=== PATIENT | female | born 1970 | race Caucasian/White ===

== ENCOUNTER 2021-11-06 08:24 | Outpatient (RCR) | payer BC, SELFPAY ==
[2021-11-06 10:36] VITALS: BP 133/59; PULSE 80; RESP 18; TEMP 36.7; O2SAT 96
[2021-11-06] MEDS: FAMOTIDINE 20 MG TABLET PO (10:40)
[2021-11-06] MEDS: diphenhydrAMINE HCl CAP 25 MG CAPSULE PO (10:40)
--- NOTE | 2021-11-06 10:43 | PC.NURSE ---
Tylenol was not given as patient stated she took 1,000mg of Tylenol at 0900 at home before treatment.
[2021-11-06 11:55] VITALS: BP 138/79
--- NOTE | 2021-11-07 08:32 | PC.NURSE ---
Patient states she is feeling much better. The infusion was amazing.
== END 2021-11-06 17:00 ==
LOC: AMCINF 08:24
PROVIDERS: PCP Family Medicine Sports Medicine; Visit Provider Internal Medicine Hematology & Oncology
DX: U07.1 COVID-19 (principal); I10 Essential (primary) hypertension; I25.10 Atherosclerotic heart disease of native coronary artery without angina pectoris; E11.9 Type 2 diabetes mellitus without complications
CPT/HCPCS: A9270; M0243; Q0243

== ENCOUNTER 2021-11-10 18:37 | Emergency (ER) | payer BC, SELFPAY ==
--- NOTE | ~2021-11-10 | XR_ITS ---
EXAMINATION: XR chest 2V EXAM DATE: 11/10/2021 19:00 INDICATION: Cough and shortness of breath. TECHNIQUE: Frontal and lateral projections of the chest obtained and reviewed. There is no prior cornell dy for comparison. FINDINGS: Moderate bilateral ill-defined airspace disease, most likely acute stage COVID pneumonia g iven appearance and community prevalence. Other etiologies not excludable. No pneumothorax or pleural effusion. Cardiomediastinal silhouette is normal. IMPRESSION: Moderate bilateral pneumonia, consider COVID. Reviewed, dictated and finalized at location A. [employer] BI DEVELOPER
--- NOTE | 2021-11-10 18:41 | ED.URI ---
HPI - URI/Sore Throat General Chief Complaint: Upper Respiratory Infection Stated Complaint: not feeling well Time Seen by Provider: 11/10/21 18:39 Source: patient, RN notes reviewed and old records reviewed Mode of arrival: ambulatory Limitations: no limitations History of Present Illness HPI Narrative: 50-year-old female presents to the [facility] with complaints of still feeling awful. Patient states that she was diagnosed with Covid on November 02, 8 days ago. Had an effusion treatment on November 06. Per medical record Casirivimab Imdevimab was given. Patient has a history of asthma, diabetes, hypertension and high cholesterol. Has been using her inhaler. States that she has not been using her insulin because she has not been eating. Patient reports her blood sugars have been 2 50-300. Patient complains of left ear pain, headache, shortness of breath with exertion and a productive cough Related Data Home Medications Medication Instructions Recorded Confirmed losartan 25 mg PO DAILY 11/27/19 11/10/21 metformin 500 mg PO QID 11/27/19 11/10/21 rosuvastatin 20 mg DAILY 11/27/19 11/10/21 albuterol sulfate 1 mcg INHALATION DIRECTED 11/10/21 11/10/21 aspirin 81 mg PO DAILY 11/10/21 11/10/21 citalopram [Celexa] 40 mg PO DAILY 11/10/21 11/10/21 dapagliflozin [Farxiga] 10 mg DAILY 11/10/21 11/10/21 [id number]-[id number] 1 inh INHALATION BID 11/10/21 11/10/21 [Trelegy Ellipta] insulin regular hum U-500 conc 500 unit SUBCUT DIRECTED 11/10/21 11/10/21 [Humulin R U-500 (Conc) Kwikpen] levothyroxine [Euthyrox] 200 mcg BID 11/10/21 11/10/21 Allergies Allergy/AdvReac Type Severity Reaction Status Date / Time atorvastatin Allergy Cramping Verified 11/10/21 18:54 of the Muscles Iodine and Iodide Containing Allergy Hives Verified 11/10/21 18:54 Produc Review of Systems Review of Systems: All systems reviewed & are unremarkable except as noted in HPI and below Cardiovascular: Cardiovascular: Reports no additional cardiovascular complaints and Denies chest pain Respiratory: Respiratory: Reports no additional respiratory complaints, Denies chest congestion and Reports dyspnea (With exertion) Gastrointestinal: Gastrointestinal: Reports no additional gastrointestinal complaints, Denies abdominal pain, Denies nausea and Denies vomiting Musculoskeletal: Musculoskeletal: Reports no additional musculoskeletal complaints Integumentary/Breasts: Skin/Breast: Reports system reviewed and no additional complaints, except as docu Neurologic: Reports system reviewed and no additional complaints, except as documented Psychiatric: Psychiatric: Reports no additional psychiatric complaints Allergic/Immunologic: Allergic/Immunologic: Reports no additional allergic/immunologic complaints PMFSH Past Medical History Medical History (Updated 11/10/21 @ 19:40 by Ela Montes) Accelerated essential hypertension Diabetes High cholesterol Thyroid disorder Social History Social History Smoking packs per day: 1 Smoking cigarettes per day: 20.0 Years smoked: 20 Smoking pack-years: 20.00 Smoking status: Former smoker Tobacco type: cigarettes Gender identity (if verbalized by the patient): Female Spiritual care concerns: No Comments At the time of my signature, I reviewed and agree with the nursing past medical, surgical, social, and family history. There is no relevant family history pertinent to the patient complaint. Exam Const: General: no acute distress, alert and ill appearing chronically Nutritional Appearance: well nourished and obese Orientation/consciousness: patient oriented x3 Limitations: no limitations HENMT: Head: normal to inspection Ears: external ears normal Eyes: Pupils: Equal, round and reactive pupils present Neck: Neck: normal visual inspection, no lymphadenopathy and no meningeal signs Chest: Chest palpation &
[2021-11-10 18:52] VITALS: BP 139/64; PULSE 86; RESP 20; TEMP 36.9; O2SAT 95
[2021-11-10 19:09] LABS: Glucose Point of Care 230 mg/dl (65-105)
--- NOTE | 2021-11-10 19:09 | PC.NURSE ---
1845- Pt states, she has not been taking her insulin d/t her being sick and not eating.
--- NOTE | 2021-11-10 20:04 | PC.NURSE ---
1954- Dexamethasone would not scan as it had to be overriden to be removed from pxyis. Dexamethasone 10mg/mL 0.4mL given double checked by Av Montes prior to administration.
== END 2021-11-10 20:09 | disposition home or self-care (01) ==
PROVIDERS: Emergency Provider Nurse Practitioner
DX: U07.1 COVID-19 (principal); J12.82 Pneumonia due to coronavirus disease 2019; I10 Essential (primary) hypertension; E11.9 Type 2 diabetes mellitus without complications; E78.00 Pure hypercholesterolemia, unspecified; E07.9 Disorder of thyroid, unspecified; Z87.891 Personal history of nicotine dependence
CPT/HCPCS: 71046; 82948; 96372; 99213; G0463; J1100

== ENCOUNTER 2023-01-25 01:27 | Observation (INO) | payer BC, SELFPAY ==
[2023-01-25] VITALS (8 sets, daily range): BP systolic 112–176; BP diastolic 52–94; PULSE 78–99; RESP 14–20; TEMP 36.4–36.6; O2SAT 94–99; BMI 59.6
--- NOTE | ~2023-01-25 | CT_ITS ---
Noncontrast CT scan of the lumbar spine CLINICAL HISTORY: Status post fall TECHNIQUE: Axial noncontrast imaging of the lumbar spine was performed. Sagittal and coronal reformat nilda images were constructed. Dose reduction technique was used on this scan by utilizing automated ex posure control and iterative reconstruction technique. The dose-length product (DLP) was 2298.73 mGy- cm. Findings: There is no fracture or subluxation of the lumbar spine. Vertebral bodies maintain normal h eight and alignment. Intervertebral disc spaces are well preserved. At L1-L2, there is no disc bulge or herniation. No spinal canal stenosis or definite neural foraminal narrowing. At L2-L3, there is facet arthropathy, right worse than left, with probable mild canal stenosis and ri ght lateral recess stenosis. Probable mild right neural foraminal narrowing. Left neural foramen pres erved. At L3-L4, there is facet arthropathy. Possible minimal central canal stenosis. Probable moderate bila teral neural foraminal narrowing. At L4-L5, probable disc bulge and facet arthropathy contribute to probable severe thecal sac compress ion. There is moderate to advanced bilateral neural foraminal narrowing. At L5-S1, there is mild facet joint degenerative change. No definite canal stenosis. There is probabl e advanced bilateral neural foraminal narrowing, left worse than right. Paravertebral soft tissues are unremarkable. IMPRESSION: No fracture or subluxation. Moderate degenerative spondylosis, probable multifactorial severe thecal sac compression L4-L5. Proba ble multilevel neural foraminal narrowing. Please see details above. Reviewed, dictated and finalized at [facility]. ET MARKER IMPRESSION: No fracture or subluxation. Moderate degenerative spondylosis, probable multifactorial severe thecal sac co mpression L4-L5. Probable multilevel neural foraminal narrowing. Please see det ails above.
--- NOTE | ~2023-01-25 | CT_ITS ---
Noncontrast CT scan of the pelvis CLINICAL HISTORY: Status post fall TECHNIQUE: Axial noncontrast imaging of the pelvis was performed. Sagittal and coronal reformatted im ages were constructed. Dose reduction technique was used on this scan by utilizing automated exposure control and iterative reconstruction technique. The dose-length product (DLP) was 1094.98 mGy-cm. COMPARISON: 11/16/2016 FINDINGS: No fracture or dislocation is seen. Osseous alignment is anatomic. Bilateral hip and SI ladonna nt spaces are unremarkable. No hip joint effusion seen. No soft tissue mass or fluid collection identified. Musculature is symmetric about the pelvis. Visualized bowel loops are unremarkable. No ascites. No adnexal mass. Urinary bladder unremarkable. IMPRESSION: Unremarkable exam. Reviewed, dictated and finalized at location . R LINEWORKER IMPRESSION: Unremarkable exam.
--- NOTE | ~2023-01-25 | XR_ITS ---
Right Knee Technique: AP, lateral, and oblique views were obtained. Clinical History: Pain Findings: No fracture or dislocation is seen. Osseous alignment is anatomic. Moderate to advanced tri compartmental degenerative spurring is present. Probable medial compartment narrowing. Soft tissues a re unremarkable. No joint effusion is seen. Impression: No fracture or dislocation seen. Moderate to advanced tricompartmental osteoarthritis, worst in the medial compartment. Reviewed, dictated and finalized at location [facility]. DIGGER Impression: No fracture or dislocation seen. Moderate to advanced tricompartmental osteoarthritis, worst in the medial arian rtment.
--- NOTE | ~2023-01-25 | MR_ITS ---
MRI of the lumbar spine Clinical History: Back pain Technique: Axial T2-weighted images, and sagittal T1-weighted, T2-weighted, and T2 fat-sat images wer e acquired. Findings: There is no fracture or subluxation of the lumbar spine. Vertebral bodies maintain normal h eight and alignment. No focal or suspicious bone marrow signal abnormality identified. At L1-L2 and L2-L3, there is no disc bulge or herniation. There are facet joint degenerative changes at these levels. No spinal canal stenosis or neural foraminal narrowing. At L3-L4, there is mild disc bulge with facet arthropathy, which contribute to moderate thecal sac co mpression. Bilateral neural foramina are preserved. At L4-L5, disc bulge and facet arthropathy result in severe thecal sac compression. There is minimal bilateral neural foraminal narrowing. At L5-S1, disc bulge is present with facet arthropathy. There is no wilder spinal canal stenosis. Ther e is mild to moderate left neural foraminal narrowing and minimal right neural foraminal narrowing. Paravertebral soft tissues are unremarkable. Impression: Moderate degenerative spondylosis, worst at L4-L5 and L3-L4. Please see details above. Reviewed, dictated and finalized at location . CE SERVICES MANAGER Impression: Moderate degenerative spondylosis, worst at L4-L5 and L3-L4. Please see details above.
--- NOTE | ~2023-01-25 | US_ITS ---
US abdomen limited DATE: 01/26/2023 09:26 INDICATION: Transaminitis TECHNIQUE: Real-time imaging and Doppler analysis of liver, pancreas, gallbladder COMPARISON: 11/16/2016 CT abdomen pelvis FINDINGS: Cholelithiasis. No gallbladder wall thickening or pericholecystic fluid or fat stranding. N egative sonographic Fernandez's sign. Hepatic steatosis. Normal hepatopedal portal venous flow direction. The common bile duct measures 2.7 mm, normal. The pancreas is not optimally demonstrated. Consider CT abdomen examination for more definitive evalu ation. IMPRESSION: Cholelithiasis Hepatic steatosis Suboptimal evaluation of the pancreas; catheter CT abdomen examination Reviewed, dictated and finalized at [facility]. Reviewed, dictated and finalized at location [facility]. T METAL SUPERVISOR
--- NOTE | ~2023-01-25 | MR_ITS ---
MRI of the right hip Clinical history: Pain Technique: Coronal T1-weighted, T2-weighted, and proton-density fat-sat images, and axial T1-weighted and proton-density fat-sat images were acquired through the pelvis. Coronal T2-weighted images and c oronal, axial, and sagittal proton-density fat-sat images were acquired through the right hip. Findings: There is no fracture, avascular necrosis, transient suppresses of either hip. No focal bone marrow signal seen in the proximal femora or visualized pelvic bones. Possible extensive red marrow conversion, which could be due to underlying anemia. Bilateral SI joints are intact. There is mild degenerative change at the superolateral aspect of the right hip joint. Minimal degener ative change of the superolateral left hip joint. No hip joint effusions seen. No right acetabular la bral tear identified. Visualized musculature about the pelvis appears unremarkable. No muscle atrophy or edema identified. Visualized tendons appear intact. No soft tissue mass or abnormal fluid collection identified. IMPRESSION: Mild degenerative change of the hip joints, as noted above. No other significant findings. Reviewed, dictated and finalized at location . ENTARY READING SPECIALIST
--- NOTE | 2023-01-25 02:15 | ED.FALL ---
HPI - Fall General Chief Complaint: Fall Stated Complaint: fall Time Seen by Provider: 01/25/23 02:04 Source: RN notes reviewed History of Present Illness HPI Narrative: Patient presents emergency department from home via EMS for a fall. Patient states that she was sitting at her kitchen table taking her evening medications when she went to stand up states that her legs slipped out from under her and she fell backwards landing on her buttocks. She states that her right leg had been pinned backwards states that since that time she had severe pain in her right lower back and right hip states she has been unable to place weight on the right hip and called EMS for transport she denies any numbness of the right leg she denies any bowel or bladder incontinence. States that she believes she did hit her head but had no loss of consciousness and denies any headache at this time she denies any neck pain chest pain shortness of breath Related Data Home Medications Medication Instructions Recorded Confirmed losartan 25 mg tablet 25 mg PO DAILY 11/27/19 11/10/21 metformin 500 mg tablet,extended 500 mg PO QID 11/27/19 11/10/21 release 24 hr rosuvastatin 20 mg tablet 20 mg DAILY 11/27/19 11/10/21 albuterol sulfate 90 mcg/actuation 1 mcg inhalation DIRECTED 11/10/21 11/10/21 aerosol inhaler aspirin 81 mg tablet 81 mg PO DAILY 11/10/21 11/10/21 citalopram 40 mg tablet (Celexa) 40 mg PO DAILY 11/10/21 11/10/21 dapagliflozin 10 mg tablet 10 mg DAILY 11/10/21 11/10/21 (Farxiga) fluticasone fur. 100 mcg-umeclid 1 inh inhalation BID 11/10/21 11/10/21 62.5 mcg-vilant 25 mcg inhalat.powder (Trelegy Ellipta) insulin regular hum U-500 conc 500 500 unit subcut DIRECTED 11/10/21 11/10/21 unit/mL(3 mL) subcut pen (Humulin R U-500 (Conc) Insulin Kwikpen) levothyroxine 200 mcg tablet 200 mcg BID 11/10/21 11/10/21 (Euthyrox) Allergies Allergy/AdvReac Type Severity Reaction Status Date / Time atorvastatin Allergy Cramping Verified 11/10/21 18:54 of the Muscles Iodine and Iodide Containing Allergy Hives Verified 11/10/21 18:54 Produc Review of Systems Review of Systems: Gen.: Denies fevers or chills Eyes: Denies eye pain or visual change ENT: Denies c facial pain Respiratory: Denies shortness of breath or cough CV: Denies chest pain or palpitations GI: Denies abdominal pain nausea, emesis or diarrhea denies incontinence Musculoskeletal: See HPI Neuro: Denies numbness, tingling, headache or loss of consciousness Skin: Denies rash Except as documented, all other systems reviewed and negative [facility] Past Medical History Medical History Accelerated essential hypertension Diabetes High cholesterol Thyroid disorder Social History Social History Smoking packs per day: 1 Smoking cigarettes per day: 20.0 Years smoked: 20 Smoking pack-years: 20.00 Smoking status: Former smoker Tobacco type: cigarettes Gender identity (if verbalized by the patient): Female Spiritual care concerns: No Exam Narrative: APPEARANCE: No acute distress, nontoxic, resting in bed EYES: EOMI, PERRL HEENT: Normocephalic, atraumatic, OMM no facial tenderness Neck: Supple no midline tenderness to palpation range of motion without pain RESPIRATORY: No respiratory distress Clear to auscultation bilaterally with no rhonchi wheezing or rales. CARDIOVASCULAR: Regular rate and rhythm without murmurs rubs or gallops. ABDOMINAL: Soft, nontender, nondistended, no rebound or guarding Back: No midline thoracic or lumbar tenderness palpation tender palpation of the right paravertebral muscles L3-4-5 MUSCULOSKELETAl:. No clubbing, cyanosis or edema. No tenderness of the bilateral upper extremities and the left lower extremity tender palpation over the right posterior and lateral hip with pain with any movement of the hip,
[2023-01-25] MEDS: MORPHINE SULFATE (*CRX) 4 MG/ML INJ IV PUSH (03:39)
[2023-01-25 04:07] LABS: Basophils Absolute Auto 0.1 K/mm3 (0.0-0.1); Basophils Percent Auto 0.6 % (0.2-1.2); Eosinophils Absolute Auto 0.2 K/mm3 (0-0.3); Hematocrit 41.6 % (37.0-47.0); Hemoglobin 13.9 g/dL (12.0-15.0); Immature Granulocyte Absolute 0.11 K/mm3 (0.00-0.031); Immature Granulocyte Percent A 0.7 % (0-0.5); Lymphocytes Absolute Auto 2.32 K/mm3 (0.9-3.2); Lymphocytes Percent Auto 14.8 % (18.3-44.2); Mean Corpuscular HGB Conc 33.4 g/dl (32-36); Mean Corpuscular Volume 89.7 fl (80-100); Mean Platelet Volume 10.8 fl (7.4-10.4); Monocytes Absolute Auto 1.1 K/mm3 (0.1-0.6); Monocytes Percent Auto 6.7 % (2.6-8.5); Neutrophils Percent Auto 76.2 % (45.5-73.1); Platelet Count Result 224 k/mm3 (150-375); Red Blood Count 4.64 M/mm3 (4.2-5.4); Red Cell Distribution Width 15.1 % (11.5-14.5); White Blood Count 15.7 K/mm3 (4.5-10.0)
[2023-01-25 04:20] LABS: Alanine Aminotransferase 46 U/L (6-35); Albumin Level 4.5 g/dL (3.5-5.1); Alkaline Phosphatase 174 U/L (38-126); Anion Gap 11 mmol/L (8-16); Aspartate Amino Transferase 44 U/L (14-36); Bilirubin,Total 0.6 mg/dL (0.2-1.3); Blood Urea Nitrogen 20 mg/dL (7-17); Calcium 8.7 mg/dL (8.4-10.2); Carbon Dioxide 24 mmol/L (22-30); Chloride 101 mmol/L (98-107); Estimated CRCL calculation 134 ml/min; Estimated Glomerular Filt Rate > 60; Glucose 287 mg/dL (65-110); Potassium 3.9 mmol/L (3.4-5.0); Sodium 136 mmol/L (137-145)
[2023-01-25 04:43] LABS: Influenza A QL RT-PCR Negative (Negative); Influenza B QL RT-PCR Negative (Negative); SARS-CoV-2 RNA PCR Negative
[2023-01-25] MEDS: KETOROLAC 30 MG/ML VIAL (*BKC) IV PUSH ×2 (06:22→14:54)
--- NOTE | 2023-01-25 08:31 | PM.IMHP ---
H&P: HPI History of Present Illness Date/Time: 01/25/23 08:31 Chief Complaint: Fall Narrative: Annamaria Shaffer is a 52 yo female with insulin dependent diabetes mellitus, hypothyroidism, hypertension and hyperlipidemia who presented to the ED following a fall from ground level. She reports standing up from the table yesterday and slipping on something on the floor. She states the floor was slick like flour was present. She reports landing on her left side and striking the left temporal head region. She denies LOC. She also states that her right leg was was contorted behind her like she was in a splits-like position. She required her son and ex-husbands assistance to get up off of the floor and then was unable to bear weight on her right leg. She had severe pain to her right hip/back region, which radiated down her right leg. She has some paresthesia to her right leg, but thinks this is secondary to the way she is positioned. 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 She denies fever, chills, rigors, SOB, RICKETTS, chest pain, palpitations, dizziness, abd pain, N/V/D or changes in eating habits prior to her fall. Currently, she is c/o severe pain to her right knee. In the ED, her vitals were stable except her BP was elevated 159/87 to 176/79. Lab work showed glucose 287 and WBC 15.7, but CBC and CMP were otherwise unremarkable. CT pelvis was negative for fractures. CT Lumbar spine snowed moderate spondylosis with severe thecal sac compression L4-5. Right knee x-ray showed moderate OA. She was treated with IV morphine and IV toradol. Orthopedics and Neurosurgery were consulted for further evaluation. She was admitted for pain control. Review of Systems Review of Systems: All systems reviewed & are unremarkable except as noted in HPI and below Constitutional: Constitutional: Reports no additional constitutional complaints Eyes: Eyes: Reports no additional eye complaints ENT: Reports system reviewed and no additional complaints, except as documented Cardiovascular: Cardiovascular: Reports no additional cardiovascular complaints Respiratory: Respiratory: Reports no additional respiratory complaints Gastrointestinal: Gastrointestinal: Reports no additional gastrointestinal complaints Genitourinary: Genitourinary: Reports vaginal discharge, Reports vaginal odor and Reports vaginal pruritus Musculoskeletal: Musculoskeletal: Reports as per HPI Integumentary/Breasts: Skin/Breast: Reports system reviewed and no additional complaints, except as docu Neurologic: Reports other ( asleep sensation RLE) [facility] Past Medical History Medical History (Updated 01/25/23 @ 17:35 by Nellie Grimm APRN) Accelerated essential hypertension Asthma Diabetes DVT of leg (deep venous thrombosis) Bilateral lower extremities in 30s secondary to contraception Fatty liver Gallstones H. pylori infection High cholesterol Hypothyroidism Lumbar spondylosis Morbid obesity with body mass index (BMI) greater than or equal to 50 Pulmonary hypertension Renal cyst Vaginal yeast infection Frequent Surgical History Surgical History (Updated 01/25/23 @ 17:23 by Nellie Grimm APRN) H/O thyroidectomy Hx of tonsillectomy Social History Social History (Updated 01/25/23 @ 17:24 by Nellie Grimm APRN) Smoking packs per day: 1 Smoking cigarettes per day: 20.0 Years smoked: 20 Smoking pack-years: 20.00 Smoking status: Former smoker Tobacco type: cigarettes Alcohol intake: former Drinks per week: 50 Substance use: never Substance use type: does not use Lack of Transportation: No Lack of Food: Never True Current Housing: I Have Housing Concerned About Future Housing: No Difficulty Paying Gas/Electric Bills: No Difficulty Paying for Meds: No Currently Unemployed: No Education: Associate Degree Diffi
[2023-01-25 09:09] LABS: Hemoglobin A1C 8.4 % (<5.7)
[2023-01-25 10:18] LABS: Folic Acid 6.9 ng/mL (2.76->20)
[2023-01-25 11:04] LABS: Vitamin D 25 Hydroxy 24.7 ng/mL
--- NOTE | 2023-01-25 12:08 | WPDNEUROSGPN ---
Subjective Date/time seen: 01/25/23 12:08 Interval history: Asked to review MRI lumbar spine by ED team Patient presented with a ground level fall yesterday with an injury to the right hip She has struggled to bear weight on the right leg since She underwent a CT of the lumbar spine in the ED that was suggestive of spinal stenosis at L4-5 The patient has subsequently undergone MR imaging of the lumbar spine that shows multilevel spondylotic changes. A combination of ligamentous and facet hypertrophy do contribute to severe central stenosis at the L4-5 level. These changes appear chronic and there are not acute changes on imaging. Agree with plans for imaging of the right hip with evaluation by orthopedic surgery. Will ask our SENIOR CIVIL ENGINEER to evaluate the patient this afternoon, but do not suspect that the spine is the primary coach driver of the patient's symtpoms. Would be reasonable to consider outpatient followup, however important to recognize that with a BMI approaching 60, the patient's weight will impact whether she would be a candidate for elective spinal surgery Objective Data Vital Signs Vital Signs: Vital Signs - 24 hr 01/25/23 01:28 01/25/23 06:36 01/25/23 10:00 Temperature 97.9 F Pulse Rate 89 86 94 Respiratory Rate 19 20 16 Blood Pressure 159/87 H 176/79 H 120/52 L Pulse Oximetry 99 96 94 Oxygen Delivery Room Air 01/25/23 09:15 01/25/23 08:00 Temperature Pulse Rate 99 99 Respiratory Rate 16 16 Blood Pressure 137/69 150/72 H Pulse Oximetry 95 96 Oxygen Delivery Meds/Results Medications: Active Medications Generic Name Dose Route Start Last Admin Trade Name Freq PRN Reason Stop Dose Admin Dextrose 12.5 gm 01/25/23 08:26 Dextrose 50% 25 Gm/50 Ml Syringe IV PUSH PRN PRN Hypoglycemia Protocol Glucagon 1 mg 01/25/23 08:26 Glucagon For Inj 1 Mg Vial IM PRN PRN Hypoglycemia Protocol Glucose 15 gm 01/25/23 08:26 Glucose Oral Gel 15 Gm Of Glucse In 37.5 Gm Tube PO PRN PRN Hypoglycemia Protocol Dextrose 1,000 mls @ 100 mls/hr 01/25/23 08:26 Dextrose 5% 1,000 Ml IVPB PRN PRN Hypoglycemia Protocol Insulin Aspart 4 - 8 units 01/25/23 12:00 Insulin Aspart (*Bkc) 100 Units/Ml SUB-Q TIDWM KERRY Protocol Morphine Sulfate 4 mg 01/25/23 07:17 Morphine Sulfate (*Crx) 4 Mg/Ml Inj IV PUSH Q4HR PRN Pain Rated 7-10 Radiology Results: ITS Impressions Pelvis CT 01/25/23 06:24 IMPRESSION: Unremarkable exam. Lumbar Spine CT 01/25/23 06:28 IMPRESSION: No fracture or subluxation. Moderate degenerative spondylosis, probable multifactorial severe thecal sac compression L4-L5. Probable multilevel neural foraminal narrowing. Please see details above. Knee X-Ray 01/25/23 06:55 Impression: No fracture or dislocation seen. Moderate to advanced tricompartmental osteoarthritis, worst in the medial compartment. Lumbar Spine MRI 01/25/23 09:47 Impression: Moderate degenerative spondylosis, worst at L4-L5 and L3-L4. Please see details above. Labs Labs: Laboratory Results - last 24 hr 01/25/23 01/25/23 01/25/23 03:41 03:41 03:42 WBC 15.7 H RBC 4.64 Hgb 13.9 Hct 41.6 MCV 89.7 MCH 30.0 MCHC 33.4 RDW 15.1 H Plt Count 224 MPV 10.8 H Immature Gran % (Auto) 0.7 H Neut % (Auto) 76.2 H Lymph % (Auto) 14.8 L [place] % (Auto) 6.7 Eos % (Auto) 1.0 Baso % (Auto) 0.6 Lymph # (Auto) 2.32 [place] # (Auto) 1.1 H Eos # (Auto) 0.2 Baso # (Auto) 0.1 Abs Immat Gran (auto) 0.11 H Absolute Neuts (auto) 12.0 H Absolute Nucleated RBC 0.0 Nucleated RBC % 0.0 Sodium Potassium Chloride Carbon Dioxide Anion Gap BUN Creatinine Estim Creat Clear Calc Estimated GFR Glucose Hemoglobin A1c 8.4 H Calcium Total Bilirubin AST ALT Alkaline Phosphatase Total
[2023-01-25 13:05] LABS: Glucose Point of Care 191 mg/dl (65-105)
--- NOTE | 2023-01-25 13:23 | PM.CNOR ---
Assessment and Plan Assessment and plan (1) Acute pain of right hip: Code(s): M25.551 - Pain in right hip Status: Acute Assessment and Plan: Patient is a 52-year-old female who presented through the emergency room last night after a fall at home. She fell onto her left side actually and the right leg was somehow twisted behind her. She was brought to the emergency room when she was unable to bear weight on the right leg. Her chief complaint was pain in the lateral posterior buttock that would radiate to the right lateral hip which she was in the ER. Subsequently she started noticing pain in the anterior aspect of her right knee this morning. She had MRI scan of her lumbar spine which showed no evidence of fracture but did show severe central canal stenosis at L4-[address] Oliveira the neurosurgeon has seen her already this morning. There did not appear to be any traumatic findings on the MRI scan. She had plain x-rays of her right knee in the emergency room which demonstrated rather severe degenerative changes in all 3 compartments on these nonweightbearing x-rays. The lateral views was large trochlear and inferior and superior pole patellar osteophytes. The AP view shows very large lateral tibial plateau osteophyte and some relative cupping of the lateral plateau and there is narrowing of medial compartment joint space with sclerotic changes. The lateral view did not show a significant joint effusion that I could see. No evidence of fracture identified. She had x-rays of right hip and CT scan which showed only minor degenerative changes but no fracture. An MRI scan right hip was obtained I have reviewed the radiologist's report as well as the images. She has some tendinopathy of the gluteus medius Tendons bilaterally. no evidence of tear no soft tissue hematoma noted although because of her extreme obesity the imaging window did not include the more superficial subcutaneous fat layer. No effusion in her hip joint no bony edema or fracture. Her laboratory studies showed increased white count 15.7. Glucose is elevated 287. Hemoglobin A1c elevated at 8.4. All of her liver enzymes are elevated AST 44 ALT 46 alkaline phosphatase 174 and these findings might be associated with steatohepatitis considering her extreme degree of obesity. Twenty-five hydroxy vitamin-D level was mildly diminished. On examination she states she prefers to lay with her leg externally rotated. When she holds it neutral rotation is more painful diffusely both in the anterior infrapatellar knee area and in the posterolateral buttock area. With effort, she was able to lift her heel with her leg extended straight, on her own about 2 in above the bed. She felt some posterolateral buttock pain with this. On palpation she denied any tenderness medial or lateral aspects of her right knee or palpation the patella patellar tendon tibial tubercle but with flexion of her knee to about 45? she reported significant pain. The pain was infrapatellar. With the leg externally rotated more flexion of the knee to 55? was only mildly uncomfortable with infrapatellar pain. She exhibited intact extensor mechanism strength. I could not palpate effusion although with her obesity I might miss a small effusion. There is no instability to varus valgus stress testing or pain with this. She had a 2+ dorsalis pedis pulse palpable. She reported normal sensation but she states that if she holds her leg is certain way the whole leg seems to tingle from the hip down. Then she rolls her leg out of the lobe it she gets relief from that. She had intact motor function at the right foot and ankle. No pedal or ankle edema. Impression: Patient has a complex constellation of symptoms. It is clear that she has significant osteoarthritis in the right knee and if her knee hyperflexed with her fall which it sounds like it did weigh her foot was underneath her, she may have exacerbated patellofemoral
--- NOTE | 2023-01-25 15:29 | PC.NURSE ---
Called pharmacist and verified methylprednisolone scheduling/dosing. Pharmacist explained to give 0630, 1200, and 1700 dose together. Then moving forward scheduled doses will be given at scheduled times.
--- NOTE | 2023-01-25 15:41 | ADMGEN ---
This patient, Annamaria Shaffer, was admitted to [facility] Room 315-02. Patient/family oriented to hospital policies and general routines including ID bracelet, bed and alarms, visiting hours, pain management, procedures, bathroom and other care routines, personal items, smoking policy, room service/diet, and visiting hours. Information on how to activate the Rapid Response Team has been discussed. Patient/Family are encouraged to report perceived risks to care and to ask questions if they do not understand what they are told or what they should do.
--- NOTE | 2023-01-25 16:11 | WPDNEUROSGPN ---
Progress Note: A&P Assessment and Plan (1) Lumbar spondylosis: Code(s): M47.816 - Spondylosis without myelopathy or radiculopathy, lumbar region Status: Acute Assessment and Plan: Continue to work with PT and OT Pain control per Hospitalist Reasonable to see as an outpatient for extended low back care if needed. Time Spent With Patient Time with patient: less than 15 minutes Subjective Date/time seen: 01/25/23 16:11 Interval history: Patient presented with a ground level fall yesterday with an injury to the right hip Continues to struggle to bear weight on the right leg since The patient has subsequently undergone MR imaging of the lumbar spine that shows multilevel spondylotic changes.? A combination of ligamentous and facet hypertrophy do contribute to severe central stenosis at the L4-5 level.? These changes appear chronic and there are not acute changes on imaging. Do not suspect that the spine is the primary motor bus driver of the patient's symptoms.? Would be reasonable to consider outpatient followup, however important to recognize that with a BMI approaching 60, the patient's weight will impact whether she would be a candidate for elective spinal surgery. Interpretations per Dr Darby. Pain remains present to right low back and right lateral lower extremity. Review of Systems Review of Systems: All systems reviewed & are unremarkable except as noted in HPI and below Exam Narrative: General: No acute distress.? Obese female laying on her side in the bed upon arrival.? Mental Status/Psych: Awake, alert and oriented to person and place with clear speech. Neutral mood and affect. Pleasant and cooperative. Chest: Respirations even and unlabored. Extremities:?4+/5 with right hip flexor, otherwise 5/5 throughout. Decrease ROM to RLE due to right lateral hip and right low back pain . Tenderness with palpation to right lower lumbar paravertebral muscles, SIJ and trochanteric bursa. Neurological: No focal deficits. Objective Data Vital Signs Vital Signs: Vital Signs - 24 hr 01/25/23 01:28 01/25/23 06:36 01/25/23 10:00 Temperature 36.6 C Pulse Rate 89 86 94 Respiratory Rate 19 20 16 Blood Pressure 159/87 H 176/79 H 120/52 L Pulse Oximetry 99 96 94 Oxygen Delivery Room Air 01/25/23 09:15 01/25/23 08:00 01/25/23 13:16 Temperature 36.6 C Pulse Rate 99 99 88 Respiratory Rate 16 16 14 Blood Pressure 137/69 150/72 H 127/67 Pulse Oximetry 95 96 95 Oxygen Delivery 01/25/23 14:00 Temperature 36.6 C Pulse Rate 87 Respiratory Rate 16 Blood Pressure 112/66 Pulse Oximetry 96 Oxygen Delivery Meds/Results Medications: Active Medications Generic Name Dose Route Start Last Admin Trade Name Freq PRN Reason Stop Dose Admin Acetaminophen 650 mg 01/25/23 12:31 Acetaminophen 325 Mg Tablet PO Q6H PRN Mild Pain (1-3) or Fever Hydrocodone Bitart/Acetaminophen 1 tab 01/25/23 12:32 Hydrocodone/Acetaminophen (*Crx) 5-325 Mg Tablet PO Q6H PRN Pain Rated 6 or Greater Dextrose 12.5 gm 01/25/23 08:26 Dextrose 50% 25 Gm/50 Ml Syringe IV PUSH PRN PRN Hypoglycemia Protocol Enoxaparin Sodium 30 mg 01/25/23 21:00 Enoxaparin 30 Mg/0.3 Ml Syringe SUB-Q Q12HR [facility] Glucagon 1 mg 01/25/23 08:26 Glucagon For Inj 1 Mg Vial IM PRN PRN Hypoglycemia Protocol Glucose 15 gm 01/25/23 08:26 Glucose Oral Gel 15 Gm Of Glucse In 37.5 Gm Tube PO PRN PRN Hypoglycemia Protocol Dextrose 1,000 mls @ 100 mls/hr 01/25/23 08:26 Dextrose 5% 1,000 Ml IVPB PRN PRN Hypoglycemia Protocol Insulin Aspart 4 - 8 units 01/25/23 12:00 01/25/23 12:59 Insulin Aspart (*Bkc) 100 Units/Ml SUB-Q Not Given TIDWM [facility] Protocol Methylprednisolone 4 mg 01/25/23 06:30 Methylprednisolone (Medrol) Dosepack 4 Mg Tablets PO 01/30/23 07:29 1200,1700 [facility] Taper Morphine Sulfate 4 mg 01/25/23 12:
[2023-01-25 16:28] LABS: Glucose Point of Care 192 mg/dl (65-105)
[2023-01-25] MEDS: methylPREDNISolone (MEDROL) DOSEPACK 4 MG TABLETS PO ×4 (16:47→20:43)
--- NOTE | 2023-01-25 17:22 | PHAR ---
HUMULIN R U-500 INSULIN PEN VERIFIED BY PHARMACY
[2023-01-25] MEDS: metFORMIN HCL XR 500 MG TAB.SR.24H 1000 MG PO (18:29)
[2023-01-25] MEDS: FLUCONAZOLE 150 MG TABLET PO (18:29)
[2023-01-25 18:36] LABS: CRP 2.2 mg/dL (<1.0)
[2023-01-25 19:35] LABS: Procalcitonin 0.1 ng/mL
[2023-01-25 19:47] LABS: Hepatitis B Surface Antigen Negative (Negative)
[2023-01-25 19:53] LABS: HAV RESULT Negative (Negative); Hepatitis B Core IgM Result Negative (Negative)
[2023-01-25 20:05] LABS: Hepatitis C Virus Antibody Negative (Negative)
[2023-01-25] MEDS: ENOXAPARIN 30 MG/0.3 ML SYRINGE SUB-Q (20:45)
[2023-01-25] MEDS: ROSUVASTATIN 10 MG TABLET 20 MG PO (20:46)
[2023-01-25 20:51] LABS: Glucose Point of Care 314 mg/dl (65-105)
[2023-01-25] MEDS: CITALOPRAM HYDROBROMIDE 20 MG TABLET PO (21:30)
[2023-01-25] MEDS: INSULIN ASPART (*BKC) 100 UNITS/ML SUB-Q (22:04)
[2023-01-25] MEDS: CYCLOBENZAPRINE HCL 5 MG TABLET PO (22:06)
[2023-01-26 06:00] VITALS: BP 117/48; PULSE 80; RESP 20; TEMP 36.5; O2SAT 96
[2023-01-26] MEDS: CYCLOBENZAPRINE HCL 5 MG TABLET PO ×3 (06:13→21:56)
[2023-01-26] MEDS: methylPREDNISolone (MEDROL) DOSEPACK 4 MG TABLETS PO ×4 (06:13→21:56)
[2023-01-26] MEDS: LEVOTHYROXINE SODIUM 100 MCG TABLET 400 MCG PO (06:13)
[2023-01-26 07:21] LABS: Basophils Absolute Auto 0.1 K/mm3 (0.0-0.1); Basophils Percent Auto 0.5 % (0.2-1.2); Eosinophils Percent Auto 0.1 % (0-4.4); Hemoglobin 13.2 g/dL (12.0-15.0); Immature Granulocyte Absolute 0.05 K/mm3 (0.00-0.031); Immature Granulocyte Percent A 0.5 % (0-0.5); Lymphocytes Absolute Auto 1.29 K/mm3 (0.9-3.2); Lymphocytes Percent Auto 13.1 % (18.3-44.2); Mean Corpuscular HGB Conc 33.8 g/dl (32-36); Mean Corpuscular Hemoglobin 30.4 pg (26-34); Mean Corpuscular Volume 89.9 fl (80-100); Mean Platelet Volume 10.5 fl (7.4-10.4); Monocytes Absolute Auto 0.4 K/mm3 (0.1-0.6); Neutrophils Percent Auto 81.8 % (45.5-73.1); Platelet Count Result 200 k/mm3 (150-375); Red Blood Count 4.34 M/mm3 (4.2-5.4); Red Cell Distribution Width 14.6 % (11.5-14.5); White Blood Count 9.8 K/mm3 (4.5-10.0)
[2023-01-26 07:41] LABS: Alanine Aminotransferase 43 U/L (6-35); Albumin Level 4.2 g/dL (3.5-5.1); Alkaline Phosphatase 158 U/L (38-126); Anion Gap 8 mmol/L (8-16); Aspartate Amino Transferase 28 U/L (14-36); Bilirubin,Total 0.7 mg/dL (0.2-1.3); Blood Urea Nitrogen 15 mg/dL (7-17); Calcium 8.7 mg/dL (8.4-10.2); Carbon Dioxide 25 mmol/L (22-30); Chloride 102 mmol/L (98-107); Estimated CRCL calculation 182 ml/min; Estimated Glomerular Filt Rate > 60; Glucose 267 mg/dL (65-110); Potassium 4.2 mmol/L (3.4-5.0); Sodium 135 mmol/L (137-145)
[2023-01-26 07:46] LABS: Glucose Point of Care 280 mg/dl (65-105)
[2023-01-26] MEDS: metFORMIN HCL XR 500 MG TAB.SR.24H 1000 MG PO ×2 (08:22→17:14)
[2023-01-26] MEDS: ENOXAPARIN 30 MG/0.3 ML SYRINGE SUB-Q ×2 (08:23→21:57)
[2023-01-26] MEDS: PANTOPRAZOLE 40 MG TABLET PO (08:23)
[2023-01-26] MEDS: buPROPion HCL XL (24 HR) 150 MG TABCR PO (08:23)
[2023-01-26] MEDS: LOSARTAN POTASSIUM 25 MG TABLET 50 MG PO (08:23)
[2023-01-26] MEDS: LORATADINE 10 MG TABLET PO (08:23)
[2023-01-26] MEDS: EMPAGLIFLOZIN 25 MG TABLET PO (08:23)
[2023-01-26] MEDS: KETOROLAC 30 MG/ML VIAL (*BKC) IM (08:32)
--- NOTE | 2023-01-26 08:46 | PM.PNORT ---
Progress Note: A&P Assessment and Plan (1) Acute pain of right hip: Code(s): M25.551 - Pain in right hip Status: Acute Assessment and Plan: Patient reports she is doing better today pain munoz and is comfortable sitting on the edge of the bed. is not sure if she can bear weight. We will ask Physical therapy to work with her and see if she can be mobilized. Subjective Subjective Date/Time Seen: 01/26/23 08:46 Objective Data Vital Signs Vital Signs: Vital Signs - 24 hr 01/25/23 10:00 01/25/23 09:15 01/25/23 13:16 Temperature 36.6 C Pulse Rate 94 99 88 Respiratory Rate 16 16 14 Blood Pressure 120/52 L 137/69 127/67 Pulse Oximetry 94 95 95 Oxygen Delivery 01/25/23 14:00 01/25/23 16:19 01/25/23 21:56 Temperature 36.6 C 36.4 C L Pulse Rate 87 78 Respiratory Rate 16 18 Blood Pressure 112/66 145/94 H Pulse Oximetry 96 95 Oxygen Delivery Room Air 01/26/23 06:00 Temperature 36.5 C Pulse Rate 80 Respiratory Rate 20 Blood Pressure 117/48 L Pulse Oximetry 96 Oxygen Delivery Intake/Output Intake/Output: Intake & Output 01/23/23 01/24/23 01/25/23 01/26/23 23:59 23:59 23:59 23:59 Intake Total 740 770 Output Total 2250 Balance 740 -1480 Meds/Results Medications: Active Medications Generic Name Dose Route Start Last Admin Trade Name Freq PRN Reason Stop Dose Admin Acetaminophen 650 mg 01/25/23 12:31 Acetaminophen 325 Mg Tablet PO Q6H PRN Mild Pain (1-3) or Fever Hydrocodone Bitart/Acetaminophen 1 tab 01/25/23 12:32 Hydrocodone/Acetaminophen (*Crx) 5-325 Mg Tablet PO Q6H PRN Pain Rated 6 or Greater Albuterol 2.5 mg 01/25/23 16:59 Albuterol Sulfate Neb 2.5 Mg/3 Ml Inh INHALATION Q4HRT PRN Shortness Of Breath Bupropion HCl 150 mg 01/26/23 09:00 01/26/23 08:23 Bupropion Hcl Xl (24 Hr) 150 Mg Tabcr PO 150 mg DAILY KERRY Administration Citalopram Hydrobromide 20 mg 01/25/23 21:00 01/25/23 21:30 Citalopram Hydrobromide 20 Mg Tablet PO 20 mg HS KERRY Administration Cyclobenzaprine HCl 5 mg 01/25/23 22:00 01/26/23 06:13 Cyclobenzaprine Hcl 5 Mg Tablet PO 5 mg Q8HR KERRY Administration Dextrose 12.5 gm 01/25/23 08:26 Dextrose 50% 25 Gm/50 Ml Syringe IV PUSH PRN PRN Hypoglycemia Protocol Empagliflozin 25 mg 01/26/23 09:00 01/26/23 08:23 Empagliflozin 25 Mg Tablet PO 25 mg QAM KERRY Administration Enoxaparin Sodium 30 mg 01/25/23 21:00 01/26/23 08:23 Enoxaparin 30 Mg/0.3 Ml Syringe SUB-Q 30 mg Q12HR KERRY Administration Fluticasone/Umeclidinium/Vilanterol 1 puff 01/26/23 09:00 Fluticasone/Umeclidin/Vilanter 100-62.5-25 Mcg Ellipta INHALATION DAILY KERRY Glucagon 1 mg 01/25/23 08:26 Glucagon For Inj 1 Mg Vial IM PRN PRN Hypoglycemia Protocol Glucose 15 gm 01/25/23 08:26 Glucose Oral Gel 15 Gm Of Glucse In 37.5 Gm Tube PO PRN PRN Hypoglycemia Protocol Home Med 0 each 01/26/23 08:00 Home Medication: (Insulin Regular Hum U-500 Conc [Humulin R U-500 (Conc) Kwikpen] SUB-Q 02/25/23 07:59 0800 [facility] Home Med 0 each 01/25/23 17:30 01/25/23 18:29 Home Medication: (Insulin Regular Hum U-500 Conc [Humulin R U-500 (Conc) Kwikpen] SUB-Q 02/24/23 17:29 Not Given 1700 KERRY Dextrose 1,000 mls @ 100 mls/hr 01/25/23 08:26 Dextrose 5% 1,000 Ml IVPB PRN PRN Hypoglycemia Protocol Insulin Aspart 4 - 8 units 01/25/23 12:00 01/25/23 17:25 Insulin Aspart (*Bkc) 100 Units/Ml SUB-Q Not Given TIDWM KERRY Protocol Ketorolac Tromethamine 30 mg 01/25/23 16:55 Ketorolac 30 Mg/Ml Vial (*Bkc) IM Q6H PRN Pain Rated 4-6 Levothyroxine Sodium 400 mcg 01/26/23 06:30 01/26/23 06:13 Levothyroxine Sodium 100 Mcg Tablet PO 400 mcg DAILY@0630 KERRY Administration Loratadine 10 mg 01/26/23 09:00 01/26/23 08:23 Loratadine 10 Mg Tablet PO 10 mg D
[2023-01-26] MEDS: INSULIN ASPART (*BKC) 100 UNITS/ML SUB-Q ×3 (08:52→17:12)
[2023-01-26] MEDS: FLUTICASONE/UMECLIDIN/VILANTER 100-62.5-25 MCG ELLIPTA 1 PUFF INHALATION (09:31)
[2023-01-26 09:34] VITALS: PULSE 86; RESP 16
[2023-01-26 11:40] LABS: Glucose Point of Care 289 mg/dl (65-105)
[2023-01-26 14:00] VITALS: BP 140/74; PULSE 85; RESP 16; TEMP 36.1; O2SAT 97
--- NOTE | 2023-01-26 15:57 | PM.IMPN ---
Progress Note: A&P Assessment and Plan (1) Fall: Qualifiers: Encounter type: initial encounter Qualified Code(s): W19.XXXA - Unspecified fall, initial encounter Code(s): W19.XXXA - Unspecified fall, initial encounter Status: Acute Assessment and Plan: s/p fall from ground level. No LOC or near syncope. Ortho consulted for right knee and hip pain. No fracture on imaging. PT evaluation (2) Acute pain of right hip: Code(s): M25.551 - Pain in right hip Status: Acute Assessment and Plan: Right hip MRI without fracture. Lumbar spine with moderate spondylosis and severe thecal sac compression L4-5. Neurosurgery consulted. ?referred pain. Continue supportive care Orthopedics following- medrol dose pack started on 01/25 (3) Acute pain of right knee: Code(s): M25.561 - Pain in right knee Status: Acute Assessment and Plan: Xray suggests moderate tricompartmental OA noted. No fracture. No apparent effusion. Continue supportive care- rest, ice, elevation, and PRN PO Ibuprofen or acetaminophen. She does not want to use narcotics due to h/o alcohol and food addictions. Continue flexeril Orthopedics consulted. (4) Gait instability: Code(s): R26.81 - Unsteadiness on feet Status: Acute Assessment and Plan: Secondary to fall and RLE pain. (5) Hypertension: Code(s): I10 - Essential (primary) hypertension Status: Chronic Assessment and Plan: elevated in ED, likely some pain component. Continue home meds. Monitor vital signs. (6) Type 2 diabetes mellitus: Code(s): E11.9 - Type 2 diabetes mellitus without complications Status: Chronic Assessment and Plan: Insulin dependent. A1c 8.4% Continue home medications. Patient to bring in her U-500 and Ozempic medications- patient takes 120-130 units with breakfast and 130 units with supper. Glucose >200 mg/dL. Increase 130 units with breakfast and 135 units with supper plus sliding scale high dose. Accu-checks AC/HS with high dose sliding scale. Will need adjustments while on medrol dose pack. (7) Morbid obesity with body mass index (BMI) greater than or equal to 50: Code(s): E66.01 - Morbid (severe) obesity due to excess calories Status: Chronic Assessment and Plan: On Ozempic, which can help with weight loss. Encourage weight loss with lifestyle modifications. We discussed extensively weight management programs, weight loss surgery, and weight loss counseling groups. (8) Lumbar spondylosis: Code(s): M47.816 - Spondylosis without myelopathy or radiculopathy, lumbar region Status: Acute Assessment and Plan: Noted on CT scan. continue supportive care. Neurosurgery consulted outpatient evaluation for persistent back pain. Plan CODE STATUS: FULL CODE Disposition: from home, discharge when pain is more controlled. Estimated LOS: 2 days. Time Spent With Patient Time: 40 minutes time spent reviewing nursing and specialist documentation, labs, vitals, and patient assessment.?All questions answered to the best of my ability. Subjective Date/time seen: 01/26/23 15:57 Interval history: Patient is a 52 yo female with insulin dependent diabetes mellitus, hypothyroidism, hypertension and hyperlipidemia who presented to the ED following a fall from ground level.?She was unable to bear weight on her right side and had severe pain to her right hip. She was admitted for pain control, as well as Ortho and neurosurgery evaluation. She states her right hip and knee pain is improved. She is awaiting PT evaluation. Review of Systems Review of Systems: All systems reviewed & are unremarkable except as noted in HPI and below Exam Narrative: General: No acute distress.? Morbidly obese older adult female lying in bed. Mental Status/Psych: Awake, alert and oriented x4 with clear speech. Yuridia
[2023-01-26 16:51] LABS: Glucose Point of Care 229 mg/dl (65-105)
[2023-01-26 21:40] LABS: Glucose Point of Care 213 mg/dl (65-105)
[2023-01-26] MEDS: ROSUVASTATIN 10 MG TABLET 20 MG PO (21:58)
[2023-01-26] MEDS: CITALOPRAM HYDROBROMIDE 20 MG TABLET PO (21:58)
[2023-01-26 22:00] VITALS: BP 134/62; PULSE 78; RESP 18; TEMP 36.4; O2SAT 96
[2023-01-26] MEDS: IBUPROFEN 600 MG TABLET PO (22:02)
[2023-01-26 23:45] VITALS: PULSE 78; O2SAT 96
[2023-01-27 06:00] VITALS: BP 126/59; PULSE 70; RESP 18; TEMP 36.8; O2SAT 96
[2023-01-27] MEDS: LEVOTHYROXINE SODIUM 100 MCG TABLET 400 MCG PO (06:28)
[2023-01-27] MEDS: CYCLOBENZAPRINE HCL 5 MG TABLET PO ×3 (06:28→20:43)
[2023-01-27] MEDS: methylPREDNISolone (MEDROL) DOSEPACK 4 MG TABLETS PO ×4 (06:29→20:43)
[2023-01-27 07:35] LABS: Glucose Point of Care 126 mg/dl (65-105)
[2023-01-27] MEDS: LOSARTAN POTASSIUM 25 MG TABLET 50 MG PO (08:59)
[2023-01-27] MEDS: buPROPion HCL XL (24 HR) 150 MG TABCR PO (08:59)
[2023-01-27] MEDS: metFORMIN HCL XR 500 MG TAB.SR.24H 1000 MG PO ×2 (08:59→18:18)
[2023-01-27] MEDS: CHOLECALCIFEROL 1,000 UNITS TABLET 2000 UNITS PO (08:59)
[2023-01-27] MEDS: ENOXAPARIN 30 MG/0.3 ML SYRINGE SUB-Q (09:00)
[2023-01-27] MEDS: PANTOPRAZOLE 40 MG TABLET PO (09:00)
[2023-01-27] MEDS: IBUPROFEN 600 MG TABLET PO ×2 (09:00→23:09)
[2023-01-27] MEDS: LORATADINE 10 MG TABLET PO (09:00)
[2023-01-27] MEDS: FLUTICASONE/UMECLIDIN/VILANTER 100-62.5-25 MCG ELLIPTA 1 PUFF INHALATION (09:05)
[2023-01-27 09:06] VITALS: PULSE 81; RESP 16
[2023-01-27] MEDS: EMPAGLIFLOZIN 25 MG TABLET PO (09:50)
[2023-01-27 11:18] LABS: Glucose Point of Care 257 mg/dl (65-105)
[2023-01-27 11:23] VITALS: O2SAT 98
[2023-01-27] MEDS: INSULIN ASPART (*BKC) 100 UNITS/ML SUB-Q (13:05)
[2023-01-27] MEDS: HYDROcodone/acetaminophen (*CRX) 5-325 MG TABLET 1 TAB PO (13:13)
[2023-01-27 14:00] VITALS: BP 131/51; PULSE 72; RESP 20; TEMP 36.2; O2SAT 95
[2023-01-27 16:20] LABS: Glucose Point of Care 105 mg/dl (65-105)
--- NOTE | 2023-01-27 17:07 | PM.IMPN ---
Progress Note: A&P Assessment and Plan (1) Fall: Qualifiers: Encounter type: initial encounter Qualified Code(s): W19.XXXA - Unspecified fall, initial encounter Code(s): W19.XXXA - Unspecified fall, initial encounter Status: Acute Assessment and Plan: s/p fall from ground level. No LOC or near syncope. Ortho consulted for right knee and hip pain. No fracture on imaging. PT evaluation and recommend SNF rehab. (2) Acute pain of right hip: Code(s): M25.551 - Pain in right hip Status: Acute Assessment and Plan: Right hip MRI without fracture. Lumbar spine with moderate spondylosis and severe thecal sac compression L4-5. Neurosurgery consulted. Continue supportive care Orthopedics following- medrol dose pack started on 01/25 (3) Acute pain of right knee: Code(s): M25.561 - Pain in right knee Status: Acute Assessment and Plan: Xray suggests moderate tricompartmental OA noted. No fracture. No apparent effusion. Continue supportive care- rest, ice, elevation, and PRN PO Ibuprofen or acetaminophen. She does not want to use narcotics due to h/o alcohol and food addictions. Continue flexeril BID Orthopedics consulted. (4) Gait instability: Code(s): R26.81 - Unsteadiness on feet Status: Acute Assessment and Plan: Secondary to fall and RLE pain. (5) Hypertension: Code(s): I10 - Essential (primary) hypertension Status: Chronic Assessment and Plan: elevated in ED, likely some pain component. Continue home meds. Monitor vital signs. (6) Type 2 diabetes mellitus: Code(s): E11.9 - Type 2 diabetes mellitus without complications Status: Chronic Assessment and Plan: Insulin dependent. A1c 8.4% Continue home medications. Patient to bring in her U-500 and Ozempic medications- patient takes 120-130 units with breakfast and 130 units with supper. Glucose >200 mg/dL. Increase 130 units with breakfast and 135 units with supper plus sliding scale high dose. Accu-checks AC/HS with high dose sliding scale. May need adjustments while on medrol dose pack. (7) Morbid obesity with body mass index (BMI) greater than or equal to 50: Code(s): E66.01 - Morbid (severe) obesity due to excess calories Status: Chronic Assessment and Plan: On Ozempic, which can help with weight loss. Encourage weight loss with lifestyle modifications. We discussed extensively weight management programs, weight loss surgery, and weight loss counseling groups. (8) Lumbar spondylosis: Code(s): M47.816 - Spondylosis without myelopathy or radiculopathy, lumbar region Status: Acute Assessment and Plan: Noted on CT scan. continue supportive care. Neurosurgery consulted outpatient evaluation for persistent back pain. Plan CODE STATUS: FULL CODE Disposition: from home, discharge when pain is controlled and safe disposition arranged. Time Spent With Patient Time: 30 minutes time spent reviewing nursing documentation, labs, vitals, and patient assessment.?All questions answered to the best of my ability. Subjective Date/time seen: 01/27/23 17:07 Interval history: Patient is a 52 yo female with insulin dependent diabetes mellitus, hypothyroidism, hypertension and hyperlipidemia who presented to the ED following a fall from ground level.?She was unable to bear weight on her right side and had severe pain to her right hip. She was admitted for pain control, as well as Ortho and neurosurgery evaluation. She worked with PT today and reports she has increased pain following. She is still not able to bear weight on her right leg. PT recommends SNF rehab and she is agreeable in order to get back on her feet. She has concerns about navigating her home with a bariatric walker and her mother does not think she can care for the patient if she is not more mobile. No new complaints.
[2023-01-27] MEDS: ROSUVASTATIN 10 MG TABLET 20 MG PO (20:43)
[2023-01-27] MEDS: CITALOPRAM HYDROBROMIDE 20 MG TABLET PO (20:43)
[2023-01-27] MEDS: ENOXAPARIN 40 MG/0.4 ML SYRINGE SUB-Q (20:44)
[2023-01-27 21:26] VITALS: BP 123/76; PULSE 63; RESP 18; TEMP 36.2; O2SAT 94
[2023-01-27 21:54] LABS: Glucose Point of Care 97 mg/dl (65-105)
[2023-01-28 05:38] VITALS: BP 118/41; PULSE 70; RESP 18; TEMP 36.8; O2SAT 95
[2023-01-28] MEDS: CYCLOBENZAPRINE HCL 5 MG TABLET PO ×2 (05:54→14:28)
[2023-01-28] MEDS: methylPREDNISolone (MEDROL) DOSEPACK 4 MG TABLETS PO ×2 (05:54→11:54)
[2023-01-28] MEDS: LEVOTHYROXINE SODIUM 100 MCG TABLET 400 MCG PO (05:54)
[2023-01-28 06:14] LABS: Hematocrit 38.9 % (37.0-47.0); Hemoglobin 12.7 g/dL (12.0-15.0); Mean Corpuscular HGB Conc 32.6 g/dl (32-36); Mean Corpuscular Hemoglobin 29.7 pg (26-34); Mean Corpuscular Volume 91.1 fl (80-100); Mean Platelet Volume 10.4 fl (7.4-10.4); Platelet Count Result 203 k/mm3 (150-375); Red Blood Count 4.27 M/mm3 (4.2-5.4); Red Cell Distribution Width 14.9 % (11.5-14.5); White Blood Count 9.8 K/mm3 (4.5-10.0)
[2023-01-28 06:56] LABS: Anion Gap 6 mmol/L (8-16); Blood Urea Nitrogen 19 mg/dL (7-17); Calcium 8.5 mg/dL (8.4-10.2); Carbon Dioxide 27 mmol/L (22-30); Chloride 102 mmol/L (98-107); Estimated CRCL calculation 134 ml/min; Estimated Glomerular Filt Rate > 60; Glucose 98 mg/dL (65-110); Potassium 3.8 mmol/L (3.4-5.0); Sodium 135 mmol/L (137-145)
[2023-01-28] MEDS: HYDROcodone/acetaminophen (*CRX) 5-325 MG TABLET 1 TAB PO ×2 (07:59→14:26)
[2023-01-28] MEDS: ENOXAPARIN 40 MG/0.4 ML SYRINGE SUB-Q (08:10)
[2023-01-28] MEDS: CHOLECALCIFEROL 1,000 UNITS TABLET 2000 UNITS PO (08:11)
[2023-01-28] MEDS: LOSARTAN POTASSIUM 25 MG TABLET 50 MG PO (08:12)
[2023-01-28] MEDS: EMPAGLIFLOZIN 25 MG TABLET PO (08:12)
[2023-01-28] MEDS: PANTOPRAZOLE 40 MG TABLET PO (08:12)
[2023-01-28] MEDS: metFORMIN HCL XR 500 MG TAB.SR.24H 1000 MG PO ×2 (08:12→16:40)
[2023-01-28] MEDS: LORATADINE 10 MG TABLET PO (08:12)
[2023-01-28] MEDS: buPROPion HCL XL (24 HR) 150 MG TABCR PO (08:13)
[2023-01-28 08:22] LABS: Glucose Point of Care 87 mg/dl (65-105)
[2023-01-28 08:45] VITALS: TEMP 36
[2023-01-28] MEDS: FLUTICASONE/UMECLIDIN/VILANTER 100-62.5-25 MCG ELLIPTA 1 PUFF INHALATION (08:52)
[2023-01-28 08:53] VITALS: O2SAT 96
[2023-01-28 11:10] LABS: Glucose Point of Care 169 mg/dl (65-105)
--- NOTE | 2023-01-28 12:58 | PM.PNORT ---
Subjective Subjective Date/Time Seen: 01/28/23 12:58 patient overall is doing much better. The narcotics as well as the prednisone seemed to be working well. She has been up walking with physical therapy several times and tolerating this very well. She would like to go home at this point. She is going to work with therapy this afternoon just to review stairs and if she remains doing well she feels she is ready to go home. Objective Data Vital Signs Vital Signs: Vital Signs - 24 hr 01/27/23 14:00 01/27/23 21:26 01/28/23 05:38 Temperature 36.2 C L 36.2 C L 36.8 C Pulse Rate 72 63 70 Respiratory Rate 20 18 18 Blood Pressure 131/51 L 123/76 118/41 L Pulse Oximetry 95 94 95 Oxygen Delivery 01/28/23 08:53 01/28/23 08:45 Temperature 36.0 C L Pulse Rate Respiratory Rate Blood Pressure Pulse Oximetry 96 Oxygen Delivery Room Air Intake/Output Intake/Output: Intake & Output 01/25/23 01/26/23 01/27/23 01/28/23 23:59 23:59 23:59 23:59 Intake Total 740 2730 1975 200 Output Total 3100 2050 Balance 740 -370 1974 -1849 Meds/Results Medications: Active Medications Generic Name Dose Route Start Last Admin Trade Name Freq PRN Reason Stop Dose Admin Acetaminophen 650 mg 01/25/23 12:31 Acetaminophen 325 Mg Tablet PO Q6H PRN Mild Pain (1-3) or Fever Hydrocodone Bitart/Acetaminophen 1 tab 01/25/23 12:32 01/28/23 07:59 Hydrocodone/Acetaminophen (*Crx) 5-325 Mg Tablet PO 1 tab Q6H PRN Administration Pain Rated 6 or Greater Albuterol 2.5 mg 01/25/23 16:59 Albuterol Sulfate Neb 2.5 Mg/3 Ml Inh INHALATION Q4HRT PRN Shortness Of Breath Bupropion HCl 150 mg 01/26/23 09:00 01/28/23 08:13 Bupropion Hcl Xl (24 Hr) 150 Mg Tabcr PO 150 mg DAILY KERRY Administration Citalopram Hydrobromide 20 mg 01/25/23 21:00 01/27/23 20:43 Citalopram Hydrobromide 20 Mg Tablet PO 20 mg HS KERRY Administration Cyclobenzaprine HCl 5 mg 01/25/23 22:00 01/28/23 05:54 Cyclobenzaprine Hcl 5 Mg Tablet PO 5 mg Q8HR KERRY Administration Dextrose 12.5 gm 01/25/23 08:26 Dextrose 50% 25 Gm/50 Ml Syringe IV PUSH PRN PRN Hypoglycemia Protocol Empagliflozin 25 mg 01/26/23 09:00 01/28/23 08:12 Empagliflozin 25 Mg Tablet PO 25 mg QAM KERRY Administration Enoxaparin Sodium 40 mg 01/27/23 21:00 01/28/23 08:10 Enoxaparin 40 Mg/0.4 Ml Syringe SUB-Q 40 mg Q12HR KERRY Administration Fluticasone/Umeclidinium/Vilanterol 1 puff 01/26/23 09:00 01/28/23 08:52 Fluticasone/Umeclidin/Vilanter 100-62.5-25 Mcg Ellipta INHALATION 1 puff DAILY KERRY Administration Glucagon 1 mg 01/25/23 08:26 Glucagon For Inj 1 Mg Vial IM PRN PRN Hypoglycemia Protocol Glucose 15 gm 01/25/23 08:26 Glucose Oral Gel 15 Gm Of Glucse In 37.5 Gm Tube PO PRN PRN Hypoglycemia Protocol Home Med 0 each 01/27/23 17:00 01/27/23 18:23 Home Medication: (Insulin Regular Hum U-500 Conc [Humulin R U-500 (Conc) Kwikpen] SUB-Q 02/26/23 17:00 135 each 1700 KERRY Administration Home Med 0 each 01/27/23 08:00 01/28/23 08:07 Home Medication: (Insulin Regular Hum U-500 Conc [Humulin R U-500 (Conc) Kwikpen] SUB-Q 02/26/23 07:59 Not Given 0800 KERRY Dextrose 1,000 mls @ 100 mls/hr 01/25/23 08:26 Dextrose 5% 1,000 Ml IVPB PRN PRN Hypoglycemia Protocol Ibuprofen 600 mg 01/26/23 15:57 01/27/23 23:09 Ibuprofen 600 Mg Tablet PO 600 mg Q6H PRN Administration Cramping Insulin Aspart 4 - 8 units 01/25/23 12:00 01/28/23 11:11 Insulin Aspart (*Bkc) 100 Units/Ml SUB-Q Not Given TID[facility] Protocol Levothyroxine Sodium 400 mcg 01/26/23 06:30 01/28/23 05:54 Levothyroxine Sodium 100 Mcg Tablet PO 400 mcg DAILY@0630 KERRY Administration Loratadine 10 mg 01/26/23 09:00 01/28/23 08:12 Loratadine 10 Mg Tablet PO 10 mg DAILY KERRY Administration Losartan Pot
--- NOTE | 2023-01-28 13:34 | PM.DS ---
DS: Admitting Diagnosis Discharge Date 01/28/2023 Admitting Diagnosis Fall Acute pain of right hip Acute pain of right knee Gait instability Essential (primary) hypertension Type 2 diabetes mellitus without complications Morbid obesity with body mass index (BMI) greater than or equal to 50 Lumbar spondylosis DS: Discharge Diagnosis Discharge Diagnosis (1) Fall: Qualifiers: Encounter type: initial encounter Qualified Code(s): W19.XXXA - Unspecified fall, initial encounter Code(s): W19.XXXA - Unspecified fall, initial encounter Status: Acute Assessment and Plan: s/p fall from ground level. No LOC or near syncope. Ortho consulted for right knee and hip pain. No fracture on imaging. PT evaluation (2) Acute pain of right hip: Code(s): M25.551 - Pain in right hip Status: Acute Assessment and Plan: Right hip MRI without fracture. Lumbar spine with moderate spondylosis and severe thecal sac compression L4-5. Neurosurgery consulted and outpatient follow up for back pain recommended. Continued supportive care Orthopedics following- medrol dose pack started on 01/25, PRN ibuprofen and norco, (3) Acute pain of right knee: Code(s): M25.561 - Pain in right knee Status: Acute Assessment and Plan: Xray suggests moderate tricompartmental OA noted. No fracture. No apparent effusion. Continue supportive care- rest, ice, elevation, and PRN PO Ibuprofen and PRN norco. She does not want to use narcotics due to h/o alcohol and food addictions. She was counseled to take prior to PT if needed to improve participation. Continued flexeril BID. Counseled on risks of combining muscle relaxants and narcotics, including increased sedation, respiratory depression and . Orthopedics consulted. (4) Gait instability: Code(s): R26.81 - Unsteadiness on feet Status: Acute Assessment and Plan: Secondary to fall and RLE pain. (5) Hypertension: Code(s): I10 - Essential (primary) hypertension Status: Chronic Assessment and Plan: elevated in ED, likely some pain component. Continue home meds. Stable (6) Type 2 diabetes mellitus: Qualifiers: Diabetes mellitus mcfp insulin use: with mcfp use Diabetes mellitus complication status: with hyperglycemia Qualified Code(s): E11.65 - Type 2 diabetes mellitus with hyperglycemia; Z79.4 - extermination supervisor (current) use of insulin Code(s): E11.9 - Type 2 diabetes mellitus without complications Status: Chronic Assessment and Plan: Insulin dependent. A1c 8.4% Continue home medications. Patient to bring in her U-500 and Ozempic medications- patient takes 120-130 units with breakfast and 130 units with supper. Glucose >200 mg/dL. Increase 130 units with breakfast and 135 units with supper plus sliding scale high dose. Accu-checks AC/HS with high dose sliding scale. (7) Morbid obesity with body mass index (BMI) greater than or equal to 50: Code(s): E66.01 - Morbid (severe) obesity due to excess calories Status: Chronic Assessment and Plan: On Ozempic, which can help with weight loss. Encourage weight loss with lifestyle modifications. We discussed extensively weight management programs, weight loss surgery, and weight loss counseling groups. (8) Lumbar spondylosis: Code(s): M47.816 - Spondylosis without myelopathy or radiculopathy, lumbar region Status: Chronic Assessment and Plan: Noted on CT scan. continue supportive care. Neurosurgery consulted outpatient evaluation for persistent back pain. (9) Vaginal yeast infection: Code(s): B37.31 - Acute candidiasis of vulva and vagina Status: Acute Assessment and Plan: c/o burning with urination and has had prior symptoms with vulvovaginal yeast infection. Diflucan 150 mg PO x1 given Symptoms resolved. (10) Vitamin D deficiency
[2023-01-28 14:00] VITALS: BP 149/90; PULSE 77; RESP 18; TEMP 36.1; O2SAT 95
[2023-01-28 19:53] LABS: Glucose Point of Care 174 mg/dl (65-105)
== END 2023-01-28 17:35 | disposition home health service (06) ==
LOC: ANHED 07:36 → ANH3MEDSUR 10:57
PROVIDERS: Nurse Practitioner Family; Admitting Provider Internal Medicine; Emergency Provider Emergency Medicine; PCP Nurse Practitioner Family; Visit Provider Student in an Organized Health Care Education/Training Program
DX: M25.551 Pain in right hip (principal); M25.561 Pain in right knee; M54.50 Low back pain, unspecified; W19.XXXA Unspecified fall, initial encounter; R26.89 Other abnormalities of gait and mobility; R26.81 Unsteadiness on feet; M17.11 Unilateral primary osteoarthritis, right knee; M16.11 Unilateral primary osteoarthritis, right hip; M47.816 Spondylosis without myelopathy or radiculopathy, lumbar region; R74.01 Elevation of levels of liver transaminase levels; B37.31 Acute candidiasis of vulva and vagina; Z20.822 Contact with and (suspected) exposure to COVID-19; J45.909 Unspecified asthma, uncomplicated; I10 Essential (primary) hypertension; E66.01 Morbid (severe) obesity due to excess calories; Z68.43 Body mass index [BMI] 50.0-59.9, adult; E11.65 Type 2 diabetes mellitus with hyperglycemia; E78.00 Pure hypercholesterolemia, unspecified; E07.9 Disorder of thyroid, unspecified; K76.0 Fatty (change of) liver, not elsewhere classified; D72.829 Elevated white blood cell count, unspecified; Z87.891 Personal history of nicotine dependence; Z79.84 Long term (current) use of oral hypoglycemic drugs; Z79.82 Long term (current) use of aspirin; Z79.51 Long term (current) use of inhaled steroids; Z79.4 Long term (current) use of insulin; Z79.899 Other long term (current) drug therapy
CPT/HCPCS: 36415; 72131; 72148; 72192; 73564; 73721; 76705; 80048; 80053; 80074; 82306; 82607; 82746; 82948; 83036; 84145; 84443; 85025; 85027; 86140; 87636; 94640; 96372; 96374; 96375; 96376; 97110; 97116; 97161; 97530; 99285; A9270; G0378; J1650; J1815; J1885; J2270

== ENCOUNTER → 2023-02-25 11:19 | Outpatient (CLI) | payer BC, SELFPAY ==
--- NOTE | ~2023-02-25 | MR_ITS ---
MRI of the right knee Clinical history: Pain Technique: Coronal proton density and proton density-weighted images, sagittal proton-density and T2 fat-sat images, and axial proton-density fat-saturated images were acquired. Findings: Anterior and posterior cruciate ligaments are intact. Medial collateral ligament and the la teral collateral ligament complex are intact. Popliteus tendon is intact. The posterior horn and body of the medial meniscus are somewhat diminutive, suggestive a complex tear ing, especially the body segment which is extrusion into the medial gutter. No definite lateral menis kori tear seen. There is diffuse grade IV chondromalacia of the medial compartment. There is focal moderate chondroma lacia of the lateral tibial plateau. There is patchy moderate chondral malacia the patellofemoral com partment. Large tricompartmental osteophytes are present. There is a focal fracture at the articular surface of the lateral tibial plateau with focal minimal depression, extensive subjacent marrow edema throughout the lateral tibial plateau region. Focal depression measures approximately 2 mm. Extensor mechanism is intact. Moderate joint effusion present. There is diffuse subcutaneous soft tis dean edema. No Fournier's cyst. Impression: Probable focal minimally depressed fracture of the lateral tibial plateau with extensive surrounding marrow edema. Moderate to severe tricompartmental osteoarthritis, as detailed above, worst in the medial compartmen t. Extensive complex tearing probably present of the body segment, and to a lesser degree, the posterior horn, of the medial meniscus. Reviewed, dictated and finalized at [facility]. Impression: Probable focal minimally depressed fracture of the lateral tibial plateau with extensive surrounding marrow edema. Moderate to severe tricompartmental osteoarthritis, as detailed above, worst in the medial compartment. Extensive complex tearing probably present of the body segment, and to a lesser degree, the posterior horn, of the medial meniscus.
== END ==
PROVIDERS: PCP Nurse Practitioner Family; Visit Provider Nurse Practitioner Family
DX: S83.231A Complex tear of medial meniscus, current injury, right knee, initial encounter (principal); X58.XXXA Exposure to other specified factors, initial encounter; M17.11 Unilateral primary osteoarthritis, right knee
CPT/HCPCS: 73721

== ENCOUNTER 2023-08-02 17:02 | Emergency (ER) | payer BC, SELFPAY ==
--- NOTE | 2023-08-02 17:15 | ED.EXTPRO ---
HPI - Extremity Problem General Chief complaint: Extremity Injury, Lower Stated complaint: lower extremity pain Time Seen by Provider: 08/02/23 17:15 Source: patient Mode of arrival: ambulatory Limitations: no limitations History of Present Illness HPI Narrative: Annamaria is a 52-year-old female patient presenting to the clinic today with complaints of lower left calf pain x 1 day. She reports she was walking yesterday and felt a pop in the back of her left calf and had a sensation of water running on the back of her leg. States the leg is more swollen today and she is wearing a compression stocking. Also reports cramping in her hands. States she believe she may be dehydrated because her PCP put her on a new diuretic pill to help control her b/p. History of DVT in the past when she was in her 30s while on oral contraceptives. She denies any abnormal shortness of breath or chest pain. Calf pain is worse with walking. Did take muscle relaxer last night and stated that did seem to help the pain. Currently rates pain 8/10 when walking. Related Data Home Medications Medication Instructions Recorded Confirmed losartan 25 mg tablet 50 mg PO DAILY 11/27/19 01/25/23 metformin 500 mg tablet,extended 1,000 mg PO BID 11/27/19 01/25/23 release 24 hr rosuvastatin 20 mg tablet 20 mg PO HS 11/27/19 01/25/23 albuterol sulfate 90 mcg/actuation 1 mcg inhalation DIRECTED PRN 11/10/21 01/25/23 aerosol inhaler Shortness Of Breath aspirin 81 mg tablet 81 mg PO HS 11/10/21 01/25/23 citalopram 40 mg tablet (Celexa) 20 mg PO HS 11/10/21 01/25/23 dapagliflozin propanediol 10 mg 10 mg PO DAILY 11/10/21 01/25/23 tablet (Farxiga) fluticasone fur. 100 mcg-umeclid 1 inh inhalation DAILY 11/10/21 01/25/23 62.5 mcg-vilant 25 mcg inhalat.powder (Trelegy Ellipta) levothyroxine 200 mcg tablet 400 mcg PO DAILY 11/10/21 01/25/23 (Euthyrox) bupropion HCl 150 mg 24 hr tablet, 150 mg PO DAILY 01/25/23 01/25/23 extended release cetirizine 10 mg tablet 10 mg PO DAILY 01/25/23 01/25/23 ibuprofen 600 mg tablet 600 mg PO Q6H PRN Pain 01/25/23 01/25/23 omeprazole 20 mg capsule,delayed 20 mg PO DAILY 01/25/23 01/25/23 release semaglutide 1 mg/dose (4 mg/3 mL) See Rx Instructions .Route .COMPLEX 01/25/23 01/25/23 subcutaneous pen injector (Ozempic) Allergies Allergy/AdvReac Type Severity Reaction Status Date / Time atorvastatin Allergy Cramping Verified 11/10/21 18:54 of the Muscles Iodine and Iodide Containing Allergy Hives Verified 11/10/21 18:54 Produc lisinopril AdvReac Cough Verified 08/02/23 17:31 Review of Systems Review of Systems: Pertinent positives per HPI. Patient denies any fever, chills, rash, headache, visual changes, dizziness, cough, shortness of breath, chest pain, palpitations, nausea, vomiting, diarrhea, constipation, abdominal pain, or any urinary issues. [facility] Past Medical History Medical History Accelerated essential hypertension Asthma Diabetes DVT of leg (deep venous thrombosis) Bilateral lower extremities in 30s secondary to contraception Fatty liver Gallstones H. pylori infection High cholesterol Hypothyroidism Lumbar spondylosis Morbid obesity with body mass index (BMI) greater than or equal to 50 Pulmonary hypertension Renal cyst Vaginal yeast infection Frequent Surgical History Surgical History H/O thyroidectomy Hx of tonsillectomy Social History Social History Smoking packs per day: 1 Smoking cigarettes per day: 20.0 Years smoked: 20 Smoking pack-years: 20.00 Smoking status: Former smoker Tobacco type: cigarettes Alcohol intake: former Drinks per week: 50 Substance use: never Substance use type: does not use Lack of Transportation: No Lack of Food: Never True Current Aleksandr
[2023-08-02 17:26] VITALS: BP 173/64; PULSE 98; RESP 20; TEMP 36.5; O2SAT 98
== END 2023-08-02 17:42 | disposition short-term general hospital (02) ==
PROVIDERS: Emergency Provider Nurse Practitioner Family
DX: M79.661 Pain in right lower leg (principal); R25.2 Cramp and spasm; Z86.718 Personal history of other venous thrombosis and embolism; Z87.891 Personal history of nicotine dependence; I10 Essential (primary) hypertension; J45.909 Unspecified asthma, uncomplicated; E11.9 Type 2 diabetes mellitus without complications; Z79.84 Long term (current) use of oral hypoglycemic drugs; K76.0 Fatty (change of) liver, not elsewhere classified; E78.00 Pure hypercholesterolemia, unspecified; M47.816 Spondylosis without myelopathy or radiculopathy, lumbar region; E66.01 Morbid (severe) obesity due to excess calories; Z68.44 Body mass index [BMI] 60.0-69.9, adult; E89.0 Postprocedural hypothyroidism; I27.20 Pulmonary hypertension, unspecified; Z79.82 Long term (current) use of aspirin
CPT/HCPCS: 99212; G0463